=== PATIENT | female | born 1970 | race Caucasian/White ===

== ENCOUNTER 2023-12-10 11:00 | Observation (INO) | payer OTHER, SELFPAY ==
[2023-12-10] VITALS (37 sets, daily range): BP systolic 101–148; BP diastolic 58–73; PULSE 84–98; TEMP 36.7–37.2; O2SAT 95–100; BMI 21.0; BMI 21.9
--- NOTE | 2023-12-10 12:23 | XR_ITS ---
The [address] [address] Patient Name: CARL DAMON MRN: [id number] date: 1970 Sex: F Assigned Patient Location: ER Current Patient Location: ER Accession/Order Number: [id number] Exam Date: 12/10/2023 12:38 Report Date: 12/10/2023 12:53 At the request of: VINCENT JAMIL Procedure: XR chest 1V EXAMINATION: XR chest 1V HISTORY: Chest pain COMPARISON: No relevant comparison available. TECHNIQUE: AP portable FINDINGS: LUNGS: No significant pulmonary parenchymal abnormalities. VASCULATURE: No increased pulmonary vasculature. PLEURA: No pneumothorax, effusion, or pleural thickening. CARDIAC: No cardiomegaly or cardiac silhouette abnormality. MEDIASTINUM: No visible mass or adenopathy. BONES: No fracture or visible bone lesion. OTHER: Negative. XR/XR chest 1V IMPRESSION: No acute cardiopulmonary process Electronically authenticated by: SABRINA JENNINGS Date: 12/10/2023 12:53
--- NOTE | 2023-12-10 12:23 | ECG_ITS ---
The [facility] Test Date: 2023-12-10 Pat Name: CARL DAMON Department: Room: - Gender: Female Actuarial Technician: : 1970 Requested By: [id number] Order Number: [id number] Reading MD: DONTE MORFIN Measurements Intervals [place] Rate: 93 P: -4 WV: 134 QRS: 77 QRSD: 80 T: 37 QT: 382 QTc: 433 Interpretive Statements [address]/T wave changes, can't exclude inferior ischemia 9110 normal ECG No previous ECG available for comparison Electronically Signed On 12-10-2023 22:18:51 EDT by DONTE MORFIN
[2023-12-10 12:40] LABS: Basophils Absolute Auto 0.1 10^3/uL (0.0-0.1); Basophils Percent Auto 0.6 % (0.2-2.0); Eosinophils Absolute Auto 0.1 10^3/uL (0.0-0.7); Eosinophils Percent Auto 0.6 % (0.9-7.0); Immature Granulocytes Abs Auto 0.06 10^3/uL (0.00-0.03); Immature Granulocytes Pct Auto 0.6 % (0.0-0.5); Lymphocytes Percent Auto 19.7 % (20.5-60.0); Mean Corpuscular HGB Conc 30.2 g/dL (29.9-35.2); Mean Corpuscular Hemoglobin 28.2 pg (26.7-34.0); Mean Corpuscular Volume 93.3 fL (81.0-99.0); Mean Platelet Volume 10.7 fL (9.5-13.5); Monocytes Absolute Auto 0.5 10^3/uL (0.3-0.8); Monocytes Percent Auto 5.4 % (1.7-12.0); Neutrophils Absolute Auto 7.3 10^3/uL (1.4-6.5); Neutrophils Percent Auto 73.1 % (43.0-75.0); Platelet Count 249 10^3/uL (150-450); Red Blood Count 2.38 10^6/uL (4.20-5.40); Red Cell Distribution Width 20.6 % (11.0-15.0); White Blood Count 9.9 10^3/uL (4.0-11.0)
[2023-12-10 12:42] LABS: Hematocrit 22.2 % (36.0-48.0); Hemoglobin 6.7 g/dL (12.0-16.0)
[2023-12-10 12:50] LABS: Alanine Aminotransferase 18 U/L (14-59); Albumin Globulin Ratio 0.5; Albumin Level 2.2 g/dL (3.4-5.0); Alkaline Phosphatase 215 U/L (46-116); Anion Gap 13.8; Aspartate Amino Transferase 126 U/L (15-37); BUN Creatinine Ratio 4.1; Bilirubin Total 4.2 mg/dL (0.2-1.0); Calcium 8.4 mg/dL (8.5-10.1); Carbon Dioxide 25.1 mmol/L (21.0-32.0); Chloride 99 mmol/L (98-107); Estimated GFR (African America >60 (>=60); Estimated GFR (Non-African Ame >60 (>=60); Globulin 4.1 g/dL; Glucose 103 mg/dL (74-106); Sodium 135 mmol/L (136-145); Total Protein 6.3 g/dL (6.4-8.2); Troponin I High Sensitivity 9.6 pg/mL (4.0-51.3)
--- NOTE | 2023-12-10 12:57 | ED_ITS ---
HPI HPI - General Adult General Stated complaint: CHEST PAIN/SHORTNESS OF BREATH Time Seen by Provider: 12/10/23 11:05 Source: patient Mode of arrival: walk-in History of Present Illness HPI narrative: Patient presents to ED complaining of shortness of breath. She said about a week ago she started with a cough and what she thought were may be seasonal allergies. She has been coughing up clear phlegm and she has had some chills as well. She scheduled a doctor appointment which is not until next Friday, so 1 week from now. She said she started to get some chest pain with this as well as more shortness of breath so she came in for further evaluation. She has pain with inspiration in the right lung and chest pain as well. No nausea vomiting no syncope. She does report that she has been coughing very hard and has a history of severe hemorrhoids. She has been coughing so hard that her hemorrhoids have been bleeding a lot. No syncope but she does get lightheaded and dizzy Especially upon standing.She is alert and oriented in no acute distress at this time vital signs stable. Related Data Home Medications ?Medication ?Instructions ?Recorded ?Confirmed No Known Home Medications 12/10/23 12/10/23 Allergies Allergy/AdvReac Type Severity Reaction Status Date / Time No Known Drug Allergies Allergy Verified 12/10/23 11:09 Opioid HPI Opioid Management Most Recent Opioid Data: No Data to Display Review of Systems ROS Status of ROS 10 or more systems reviewed and unremark able except as noted in history and below Exam Narrative Exam Narrative: Time Seen: [] Vital Signs: [Per nurse's notes.] General: [Alert]Pale Skin: [Warm, dry, no rash.] Head: [Normocephalic, atraumatic.] Neck: [Supple, trachea midline.] Eye: [Pupils are equal, round and reactive to light, extraocular movements are intact, normal conjunctiva.] Ears, nose, mouth and throat: oral mucosa moist. Cardiovascular: [Regular rate and rhythm, no murmur.] Respiratory: Crackles in the right base, respirations are non-labored, breath sounds are equal.] Chest wall: [No tenderness, no deformity.] Gastrointestinal: [Soft, nontender, non distended, normal bowel sounds.] MSK: 5 out of 5 muscle strength x 4 extremities no calf pain or edema Lymphatics: [No lymphadenopathy.] Psychiatric: [Cooperative, appropriate mood & affect.] Neurological: [Alert and oriented to person, place, time, and situation, no focal neurological deficit observed.] Constitutional Vital Signs, click to edit/add: Last Vital Signs Temp 98.5 F 12/10/23 11:09 Pulse 90 12/10/23 13:50 Resp 23 H 12/10/23 13:50 BP 126/67 12/10/23 13:45 Pulse Ox 100 12/10/23 13:50 O2 Del Method Room Air 12/10/23 11:09 Course Vital Signs Vital signs: Vital Signs Pulse Rate 98 H 12/10/23 11:00 Respiratory Rate 18 12/10/23 11:00 Blood Pressure 148/73 H 12/10/23 11:00 Pulse Oximetry 99 12/10/23 11:00 Oxygen Delivery Method Room Air 12/10/23 11:00 Temperature 98.5 F 12/10/23 11:09 Pulse Rate 90 12/10/23 13:50 Respiratory Rate 23 H 12/10/23 13:50 Blood Pressure 126/67 12/10/23 13:45 Pulse Oximetry 100 12/10/23 13:50 Oxygen Delivery Method Room Air 12/10/23 11:09 Medical Decision Making MDM Narrative Medical decision making narrative: Lab called with a critical hemoglobin of 6.7. Blood transfusion was ordered immediately. Lab called again with a critical potassium of 2.9. Potassium was ordered immediately. I called and spoke to Dr. Martin who will admit the patient for blood transfusion as well as potassium transfusion. Patient does also admit to drinking alcohol daily but has not had a drink in 2 days and is so far not exhibiting any signs or symptoms of acute alcohol withdrawal. Dr. Martin is comfortable with the med/tele admit.Patient is comfortable care plan for admission Differential Diagnosis Differential Diagnosis: Anemia, pneumonia, electrolyte abnormality Medical Records Medical records reviewed: Yes I reviewed the patient's medical records Lab Data Lab results reviewed: Yes I reviewed the patient's lab results Labs: Lab Results 12/10/23 Range/Units 11:20 WBC 9.9 (4.0-11.0) 10^3/uL RBC 2.38 L (4.20-5.40) 10^6/uL Hgb 6.7 L* (12.0-16.0) g/dL Hct 22.2 L* (36.0-48.0) % MCV 93.3 (81.0-99.0) fL MCH 28.2 (26.7-34.0) pg MCHC 30.2 (29.9-35.2) g/dL RDW 20.6 H (11.0-15.0) % Plt Count 249 (150-450) 10^3/uL MPV 10.7 (9.5-13.5) fL Neut % (Auto) 73.1 (43.0-75.0) % Lymph % (Auto) 19.7 L (20.5-60.0) % Charles % (Auto) 5.4 (1.7-12.0) % Eos % (Auto) 0.6 L (0.9-7.0) % Baso % (Auto) 0.6 (0.2-2.0) % Neut # (Auto) 7.3 H (1.4-6.5) 10^3/uL Lymph # (Auto) 2.0 (1.2-3.8) 10^3/uL Charles # (Auto) 0.5 (0.3-0.8) 10^3/uL Eos # (Auto) 0.1 (0.0-0.7) 10^3/uL Baso # (Auto) 0.1 (0.0-0.1) 10^3/uL Abs Immat Gran (auto) 0.06 H (0.00-0.03) 10^3/uL Imm/Tot Granulo (auto) 0.6 H (0.0-0.5) % Sodium 135 L (136-145) mmol/L Potassium 2.9 L* (3.5-5.1) mmol/L Chloride 99 (98-107) mmol/L Carbon Dioxide 25.1 (21.0-32.0) mmol/L Anion Gap 13.8 BUN 3.0 L (7.0-18.0) mg/dL Creatinine 0.74 (0.55-1.02) mg/dL Est GFR ( Amer) >60 (>=60) Est GFR (Non-Af Amer) >60 (>=60) BUN/Creatinine Ratio 4.1 Glucose 103 (74-106) mg/dL Calcium 8.4 L (8.5-10.1) mg/dL Total Bilirubin 4.2 H (0.2-1.0) mg/dL AST 126 H (15-37) U/L ALT 18 (14-59) U/L Alkaline Phosphatase 215 H (46-116) U/L Troponin I High Sens 9.6 (4.0-51.3) pg/mL Total Protein 6.3 L (6.4-8.2) g/dL Albumin 2.2 L (3.4-5.0) g/dL Globulin 4.1 g/dL Albumin/Globulin Ratio 0.5 ECG Data Attestation: I personally reviewed and interpreted this ECG as follows: Interpretation: EKG INTERPRETATION Time: []1110 Rate: []93 Rhythm: _ []Normal sinus rhythm ST segments: _ [] T waves: _ [] Ectopy: _ [] P wave/DE interval: _ [] QRS interval: _ [] QT interval: _ [] Comparison: _ [] Comparison EKG date: [] Performed by: [self]Normal sinus rhythm no acute ST elevation or depression Discharge Plan Discharge Clinical Impression: Anemia, Dyspnea, Hypokalemia Patient Disposition: Admitted As Inpatient Time of Disposition Decision: 14:05 Condition: Fair Prescriptions / Home Meds: No Action No Known Home Medications Print Language: Guatemalan Referrals: [facility] [Primary Care Provider] - 1 week
[2023-12-10 13:00] LABS: Potassium 2.9 mmol/L (3.5-5.1)
--- NOTE | 2023-12-10 13:30 | US_ITS ---
The [place] [id number] Patient Name: CARL DAMON MRN: [id number] date: 1970 Sex: F Assigned Patient Location: Current Patient Location: Accession/Order Number: [id number] Exam Date: 12/10/2023 07:00 Report Date: 12/11/2023 07:46 At the request of: ANDREEA REDDING Procedure: US right upper quadrant EXAM: US right upper quadrant HISTORY: Elevated liver function, CP/epigastric pain COMPARISON: None. TECHNIQUE: Grayscale, color and Doppler FINDINGS: The liver measures 19.3 cm in length. Mildly nodular contour. Diffuse increase in hepatic echotexture with no focal mass. Hepatopedal flow in the main portal vein with velocity of 36 cm/s. The gallbladder is normal in size. The gallbladder wall is thickened measuring up to 5.8 mm with some fluid. Layering material within the gallbladder likely cholelithiasis/sludge. The common bile duct measures 1.6 mm, normal. The visualized pancreas is normal. The right kidney is normal measuring 10.3 x 5.2 x 4.1 cm. Small amount of ascites with a perihepatic distribution Call results initiated through operations US/US right upper quadrant IMPRESSION: Mildly nodular echogenic liver, consider cirrhosis Thickened gallbladder wall suggesting cholecystitis Electronically authenticated by: SABRINA JENNINGS Date: 12/11/2023 07:46
[2023-12-10] MEDS: POTASSIUM CHLORIDE 10 MEQ ER TABLET 40 MEQ PO (13:31)
[2023-12-10] MEDS: POTASSIUM CHLORIDE 40 MEQ in 0.9 % SODIUM CHLORIDE 250 ML 67.5 MEQ IV (13:31)
[2023-12-10] MEDS: 0.9 % SODIUM CHLORIDE 250 ML 10 ML IV (13:32)
--- NOTE | 2023-12-10 15:20 | SWNOTE1 ---
SW went to speak with pt in regards to alcohol intake, but nursing was in room completing admission assessment.
[2023-12-10 15:51] LABS: INR 1.33; Partial Thromboplastin Time 37.1 sec (22.3-36.2); Prothrombin Time 13.7 sec (9.0-11.6)
--- NOTE | 2023-12-10 16:08 | P.HP_ITS ---
HPI H&P: HPI History of Present Illness Chief complaint: HYPOKALEMIA/ANEMIA/RECTAL BLEEDING/SOB Narrative: 12/10/23 1520 This is a 53-year-old female patient with a past medical history as outlined below significant for chronic rectal bleeding from hemorrhoids and EtOH abuse, who presented to the ED today complaining of lightheadedness, weakness, confusion, nausea, and cough. The patient reports a long-term rectal bleeding issue from hemorrhoids that she uses Proctofoam for on a regular basis. She noted increased bleeding in the last 2 months with minimal stool output and occasional large-volume rectal bleeding. She denies any abdominal or rectal pain associated with this bleeding. She has not been following with any doctor for more than 4 years after she started drinking again after a 6 mo stint of sobriety. She currently drinks 3-4 large Naughty Doggy cocktails (8% EtOH) plus multiple Fireball shots daily. She has no known history of liver disease but has not had any lab work done for at least 4 years. She also admits to 1PPD tobacco use for many years. Workup in the ED revealed profound anemia (6.7), profound hypokalemia (2.9), transaminitis (bili 4.2, AST 126, alk phos 215). A CXR was unremarkable. The patient is being admitted as an inpatient to the hospitalist service for GI bleeding, acute on chronic blood loss anemia, hypokalemia, and hyperbilirubinemia. At the time of my exam the patient is resting in bed talking with her daughter. She freely admits to her heavy alcohol use and verbalizes openness to pursuing alcohol cessation. We have ordered right upper quadrant ultrasound to further assess her liver, and this will be done in the morning after she is n.p.o. for 8 hours. We have also added on coagulation studies, folic acid, B12, magnesium, and phosphorus labs to the ED sample. Will treat as needed pending these results. We will consult social work professor for assistance with alcohol cessation programs. Opioid HPI Opioid Management Most Recent Opioid Data: Last Pain Assessment 12/11/23 06:00 Last ORT Total Score 6 12/10/23 14:51 Last ORT Risk Category Moderate Risk 12/10/23 14:51 Review of Systems ROS Status of ROS 10 or more systems reviewed and unremark able except as noted in history and below PFSH PFS Medical History (Updated 12/11/23 @ 07:04 by Darcy Dwyer NP) Tobacco dependence ?F17.200 - Nicotine dependence, unspecified, uncomplicated (ICD-10) Alcoholism ?F10.20 - Alcohol dependence, uncomplicated (ICD-10) Stress headaches ?F45.41 - Pain disorder exclusively related to psychological factors (ICD-10) Hemorrhoid ?K64.9 - Unspecified hemorrhoids (ICD-10) Surgical History (Updated 12/10/23 @ 15:17 by Zina Tay) H/O tubal ligation ?Z98.51 - Tubal ligation status (ICD-10) Family History (Updated 12/10/23 @ 15:18 by Zina Tay) Grandfather Family history of myocardial infarction Father Family history of hypertension Family history of cancer Grandmother Family history of cancer Mother Family history of COPD (chronic obstructive pulmonary disease) Social History (Updated 12/10/23 @ 15:21 by Zina Tay) Within the past year, how often did you have a drink containing alcohol: 4 or more times a week Within the past year, how many standard drinks containing alcohol did you have on a typical day: 3 or 4 Within the past year, how often did you have six or more drinks on one occasion: monthly Total score: 4 Score interpretation: A score of 3 or more indicates drinking is likely to affect patient's safety. Smoking status: Heavy tobacco smoker Non-prescribed substance use: denies use Previous occupational history: [employer] Highest level of school completed/degree received: high school graduate Are you now , , , , never or living with a partner: Little interest or pleasure in doing things: several days Feeling down, depressed, or hopeless: several days Feel stressed/tense/nervous/anxious/difficulty sleeping: rather much Life stressors: unknown source of stress Meds Home Medications and Allergies Home Medications ?Medication ?Instructions ?Recorded ?Confirmed ?Type No Known Home Medications 12/10/23 12/10/23 History Allergies Allergy/AdvReac Type Severity Reaction Status Date / Time No Known Drug Allergies Allergy Verified 12/10/23 11:09 Exam Constitutional Vital Signs, click to edit/add: Last Vital Signs Temp 98.5 F 12/10/23 14:51 Pulse 92 H 12/10/23 14:51 Resp 20 05/22/24 14:51 BP 123/64 12/10/23 14:51 Pulse Ox 96 12/10/23 14:51 O2 Del Method Room Air 12/10/23 14:51 Common normals: no apparent distress, oriented x3, alert and well nourished General appearance: cooperative Orientation/consciousness: Yes awake Other: Jaundiced HENMT Common normals: normocephalic, head/scalp atraumatic, hearing grossly normal bilaterally, external nose normal and moist oral mucous membranes Eye Common normals: PERRL, EOMs intact bilaterally and conjunctivae normal Alignment: alignment normal Eyelid: eyelids normal Sclera: sclera abnormal Laterality of scleral abnormality: bilateral (icteric) Neck & C-Spine Common normals: full ROM, supple and no JVD Chest Common normals: inspection of chest normal Chest: symmetrical chest wall rise Respiratory Common normals: normal respiratory effort, no retractions, no use of accessory muscles and clear to auscultation bilaterally Effort & inspection: able to speak in complete sentences Cardio Common normals: no JVD, regular rate, regular rhythm, S1 normal heart sound, S2 normal heart sound, no gallops, no clicks, no rub and peripheral pulses 2+ throughout Heart sounds: murmur (HSM 2/6) GI Common normals: Normal to inspection, nondistended, normoactive bowel sounds present, soft to palpation, non-tender, no hepatosplenomegaly, no masses and no bruits Bladder/kidney exam: bladder normal to palpation Back & Pelvis Common normals: thoracic and lumbar spine normal to inspection Extremity Common normals: normal capillary refill and no pedal edema General: normal exam except as noted; no clubbing and no cyanosis Neuro Alanna Coma Scale: GCS not evaluated Common normals: CN's II-XII intact bilaterally, moves all extremities, no focal motor deficits and no sensory deficits noted Speech: speech normal Motor exam: strength 5/5 throughout Psych Common normals: mental status grossly normal, thought process normal, affect normal and activity/motor behavior normal Results Labs Labs: Short CBC 12/10/23 Range/Units 11:20 WBC 9.9 (4.0-11.0) 10^3/uL Hgb 6.7 L* (12.0-16.0) g/dL Hct 22.2 L* (36.0-48.0) % Plt Count 249 (150-450) 10^3/uL BMP 12/10/23 11:20 Sodium 135 L Potassium 2.9 L* Chloride 99 Carbon Dioxide 25.1 BUN 3.0 L Creatinine 0.74 Glucose 103 Calcium 8.4 L Liver Function 12/10/23 Range/Units 11:20 Total Bilirubin 4.2 H (0.2-1.0) mg/dL AST 126 H (15-37) U/L ALT 18 (14-59) U/L Alkaline Phosphatase 215 H (46-116) U/L Albumin 2.2 L (3.4-5.0) g/dL Pulse Oximetry Attestation: I have reviewed the pertinent pulse oximetry results. Imaging Chest x-ray: Attestation: I have reviewed the pertinent imaging results. Radiologist's impression: IMPRESSION: No acute cardiopulmonary process Assessment and Plan Assessment and Plan (1) GIB (gastrointestinal bleeding): Assessment and Plan: Acute on Chronic * Adm inpatient * We plan at least a 2 midnight stay for medically necessary hospital care including frequent lab monitoring, PRBC transfusions, Electrolyte IV replacement, and cardiac monitoring * Acute worsening of chronic BRBPR - suspect d/t known hemorrhoids, but fissures/neoplastic lesions/impaired coagulation are all possible contributors * Add coagulation studies on to ED lab sample in setting of liver dysfunction * See ABLA below * Consider Surgical consult for possible colonoscopy pending clinical course vs outpatient follow up after discharge * CBC, CMP daily (2) ABLA (acute blood loss anemia): Assessment and Plan: Acute on Chronic * Hgb 6.7 in the ED * 2 un PRBC transfusion ordered - pending transfusion * HH q6h - transfuse further units for hgb < 7 or significantly symptomatic * Strict I&O * CBC daily (3) Hypokalemia: Assessment and Plan: Acute * Suspect 2/2 heavy alcohol abuse * KCL 40 meq IVPB PLUS 40 meq PO given in the ED * Repeat BMP at 1800 * Give additional KCL 40 meq IVPB for K+ less than 3.1 * Add mag and phos onto ED labs and replete as needed * Tele monitoring * CMP daily (4) Hyperbilirubinemia: Assessment and Plan: Acute vs Chronic * Bili 4.2, AST 126, Alk Phos 215, ALT WNL * Jaundice noted on exam * No known hx of liver disease but pt admits to significant EtOH consumption daily * Suspect underlying cirrhosis * US RUQ to assess the liver in AM * Check ammonia level * Plan outpatient follow up with GI pending results (5) At risk for alcohol withdrawal: Assessment and Plan: Acute * EtOH w/drawal protocol initiated * Seizure precautions * PRN ativan and Librium * student services coordinator consult for rehab placement assistance * Check folate and B12 levels, start PO replacement daily (6) Tobacco dependence: Assessment and Plan: Chronic * Nicoderm 21 mg patch daily
--- NOTE | 2023-12-10 16:12 | SWNOTE1 ---
SW did speak to nurse practitioner and there will be a consult for perinatal social worker due to alcohol intake. SW went to stop back in, family was in room and nursing. SW to attempt to see pt tomorrow.
[2023-12-10] MEDS: NICOTINE 21 MG PATCH.TD24 TD (16:44)
[2023-12-10] MEDS: SENNOSIDES/DOCUSATE SODIUM 1 TAB TABLET PO (16:44)
[2023-12-10 16:58] LABS: Ammonia 23 umol/L (11-32)
[2023-12-10] MEDS: FOLIC ACID 1 MG TABLET PO (20:10)
[2023-12-10] MEDS: ONDANSETRON PF 4 MG/2 ML VIAL IV (20:10)
[2023-12-10] MEDS: PANTOPRAZOLE SODIUM 40 MG VIAL IV (20:10)
[2023-12-11] VITALS (9 sets, daily range): BP systolic 109–118; BP diastolic 70–72; PULSE 83–88; TEMP 36.7; O2SAT 92–116
[2023-12-11 02:06] LABS: Hemoglobin 8.9 g/dL (12.0-16.0)
[2023-12-11 02:15] LABS: Anion Gap 2.7; BUN Creatinine Ratio 5.6; Calcium 8.1 mg/dL (8.5-10.1); Carbon Dioxide 26.4 mmol/L (21.0-32.0); Chloride 95 mmol/L (98-107); Estimated GFR (African America >60 (>=60); Estimated GFR (Non-African Ame >60 (>=60); Glucose 94 mg/dL (74-106); Potassium 4.1 mmol/L (3.5-5.1)
[2023-12-11 02:22] LABS: Sodium 120 mmol/L (136-145)
[2023-12-11 03:13] LABS: Occult Blood Positive
[2023-12-11 03:14] LABS: Internal Control Within Normal Limits
[2023-12-11] MEDS: 0.9 % SODIUM CHLORIDE 1,000 ML 125 ML IV (03:27)
[2023-12-11] MEDS: ONDANSETRON PF 4 MG/2 ML VIAL IV (06:18)
[2023-12-11] MEDS: LORAZEPAM 2 MG/ML VIAL 0.5 MG IV (06:56)
[2023-12-11 08:07] LABS: Basophils Absolute Auto 0.1 10^3/uL (0.0-0.1); Basophils Percent Auto 0.5 % (0.2-2.0); Eosinophils Absolute Auto 0.1 10^3/uL (0.0-0.7); Eosinophils Percent Auto 0.7 % (0.9-7.0); Hematocrit 28.8 % (36.0-48.0); Hemoglobin 9.1 g/dL (12.0-16.0); Immature Granulocytes Pct Auto 0.9 % (0.0-0.5); Lymphocytes Absolute Auto 1.8 10^3/uL (1.2-3.8); Lymphocytes Percent Auto 15.5 % (20.5-60.0); Mean Corpuscular HGB Conc 31.6 g/dL (29.9-35.2); Mean Corpuscular Hemoglobin 28.5 pg (26.7-34.0); Mean Corpuscular Volume 90.3 fL (81.0-99.0); Mean Platelet Volume 10.4 fL (9.5-13.5); Monocytes Absolute Auto 0.6 10^3/uL (0.3-0.8); Monocytes Percent Auto 5.3 % (1.7-12.0); Neutrophils Absolute Auto 8.7 10^3/uL (1.4-6.5); Neutrophils Percent Auto 77.1 % (43.0-75.0); Platelet Count 238 10^3/uL (150-450); Red Blood Count 3.19 10^6/uL (4.20-5.40); Red Cell Distribution Width 19.6 % (11.0-15.0); White Blood Count 11.3 10^3/uL (4.0-11.0)
--- NOTE | 2023-12-11 09:41 | SWNOTE1 ---
VIGNESH met with pt to discuss her alcohol intake and possibility of inpt/outpt rehab. Pt voiced she has been drinking for a very long time. She voiced she has stopped a few times and then got bored and started drinking again. Pt wakes up at 5am and has a few beers or shots, then drives to work at [employer]. Once she is home she goes to her room and smokes and has a few more beers/shots and repeats the same thing the next day. VIGNESH asked if she has ever had DUI? Pt stated she has not. SW advised against drinking and driving as it is a danger to herself and other drivers on road. SW asked if her employer has ever said anything, she voiced no. Pt has 4 children, she stated once they grew up and moved out she was bored and drank. Her friends mother lives with her and she was caring for her. While she was caring for her she stopped drinking, but now her friends mother is better and she is back to drinking again. VIGNESH did ask pt if she is going to continue once home. She stated she is done. She stated this is the first time she had an actual health scare and she is worried now. Pt did voice she has a good support system between family and friends and they will encourage her not to drink. VIGNESH reviewed the resources that VIGNESH provided. Pt has only been to the [facility] and stated it was a bad experience. VIGNESH went over the information from [facility] in [place]. VIGNESH encouraged pt to give this facility a try and let her know it is outpt. VIGNESH reviewed the phone number and location. VIGNESH offered to call and get an apt set up, but pt would like to do it on her own as she has appointments and work to work around. VIGNESH also reviewed the AA meetings and other outpt/inpt resources with pt. VIGNESH provided a card with SW extension at hospital to call if pt needs any assistance. VIGNESH did ask about her follow up apt and who it was with. Pt voiced it is with Dr. Thompson. VIGNESH and bilingual secretary looked up number. The floor bilingual secretary called and confirmed pt does have a new pt apt with Dr. Luz Townsend on FridayDecember 16. VIGNESH notified pt that it is Friday and encouraged her to follow up. No further needs at this time. SW to follow as needed.
[2023-12-11 09:46] LABS: Alanine Aminotransferase 15 U/L (14-59); Albumin Globulin Ratio 0.6; Albumin Level 2.2 g/dL (3.4-5.0); Alkaline Phosphatase 192 U/L (46-116); Aspartate Amino Transferase 123 U/L (15-37); Bilirubin Total 10.1 mg/dL (0.2-1.0); Calcium 8.1 mg/dL (8.5-10.1); Carbon Dioxide 25.2 mmol/L (21.0-32.0); Chloride 101 mmol/L (98-107); Estimated GFR (African America >60 (>=60); Estimated GFR (Non-African Ame >60 (>=60); Globulin 3.9 g/dL; Glucose 90 mg/dL (74-106); Magnesium 1.9 mg/dL (1.8-2.4); Phosphorus 1.7 mg/dL (2.6-4.7); Potassium 4.2 mmol/L (3.5-5.1); Sodium 134 mmol/L (136-145); Total Protein 6.1 g/dL (6.4-8.2)
--- NOTE | 2023-12-11 09:46 | CM.NOTE ---
Rounds made with Dr. Martin, discussed in-depth need to stop drinking alcohol. Discussed also with pt need for EGD and Colonoscopy as outpatient testing. Pt will need to f/u with PCP ([place] secretary of state to schedule.) SW updated on pt history and will meet with pt regarding alcohol treatment plan.
[2023-12-11] MEDS: FOLIC ACID 1 MG TABLET PO (10:06)
[2023-12-11] MEDS: PANTOPRAZOLE SODIUM 40 MG VIAL IV (10:06)
[2023-12-11] MEDS: ACETAMINOPHEN 325 MG TABLET 650 MG PO (10:06)
[2023-12-11] MEDS: SENNOSIDES/DOCUSATE SODIUM 1 TAB TABLET PO (10:06)
[2023-12-11 11:25] LABS: Bilirubin Direct 4.3 mg/dL (0.0-0.2)
--- NOTE | 2023-12-11 11:33 | P.DS_ITS ---
<Statement entered by Davey Martin MD - 12/11/23 20:51> This documentation has been reviewed and approved. Pt seen and examined at bedside, agree with input and finding from Nurse practitioner. DS: Providers Provider Date of admission: 12/10/23 14:31 Primary care physician: [facility] Consults: 12/10/23 16:35 Consult to Elevator Mechanic Apprentice Routine Reason for consult:: Drug Abuse Other reason:: EtOH rehab Discharging clinician: Darcy Dwyer DS: Diagnosis Discharge Diagnosis (1) GIB (gastrointestinal bleeding): (2) ABLA (acute blood loss anemia): (3) Hypokalemia: (4) Hyperbilirubinemia: (5) Liver cirrhosis, alcoholic: (6) At risk for alcohol withdrawal: (7) Tobacco dependence: DS: Summary Hospital Course Hospital Course: The patient was admitted with with acute on chronic blood loss anemia from acute on chronic painless GI bleeding, hypokalemia, and hyperbilirubinemia suspected due to EtOH abuse. She was transfused with 2 units PRBCs and her hemoglobin was monitored closely for 24 hours. Her anemia resolved and her hemoglobin remained above 9 at the time of discharge. We suspect hemorrhoidal bleeding but source could also include neoplasm/diverticulitis/anal fissure versus other etiologies. The patient has been referred after discharge for an outpatient colonoscopy. In addition we obtained a ultrasound of her right upper quadrant to further assess her liver. This revealed likely cirrhosis and also gallbladder wall thickening but no evidence of biliary obstruction. Due to the patient's impaired liver function we checked an INR which was slightly elevated at 1.33 which is likely contributing to her frequent bleeding. As the patient's hemoglobin is stabilized and her symptoms from anemia had resolved, she was discharged home in stable condition. She should be referred to general surgery or GI as soon as possible for a colonoscopy to further assess for sources of bleeding. She was prescribed Proctofoam for her known hemorrhoids at discharge. In addition, the patient was strongly advised to pursue complete alcohol cessation which she verbalized her intention to do so. She was seen by social worker delinquency prevention for assistance with alcohol cessation programs. She was prescribed a short Librium taper at discharge to prevent alcohol withdrawal symptoms after discharge. She was informed to not take this medication with alcohol and to avoid all alcohol completely. She should follow-up with her PCP within 1 week and we strongly advise close monitoring of her CBC until she is able to have a colonoscopy. We recommend GI follow-up for her cirrhosis as well. Time Spent with Patient Time attestation: Total time spent providing and/or coordinating discharge services: Time spent: greater than 30 minutes Specific discharge activities: Physical exam, discussion of discharge plan, questions answered. Exam Constitutional Vital Signs, click to edit/add: Last Vital Signs Temp 98.0 F 12/11/23 08:00 Pulse 87 12/11/23 08:00 Resp 18 12/11/23 08:00 BP 109/70 12/11/23 08:00 Pulse Ox 92 L 12/11/23 08:00 O2 Del Method Room Air 12/11/23 08:00 Common normals: no apparent distress, oriented x3 and alert General appearance: cooperative Orientation/consciousness: Yes awake HENMT Common normals: normocephalic and head/scalp atraumatic Eye Common normals: PERRL, EOMs intact bilaterally and conjunctivae normal Neck & C-Spine Common normals: no JVD Respiratory Common normals: normal respiratory effort and no use of accessory muscles Effort & inspection: able to speak in complete sentences and symmetric chest movement Auscultation: rales (Fine, BLL) Cardio Common normals: no JVD, regular rate, regular rhythm, S1 normal heart sound, S2 normal heart sound, no murmurs and peripheral pulses 2+ throughout GI Common normals: Normal to inspection, nondistended, normoactive bowel sounds present, soft to palpation and non-tender Bladder/kidney exam: bladder normal to palpation Extremity Common normals: normal to inspection, full ROM, normal capillary refill and no pedal edema General: no clubbing and no cyanosis Neuro Common normals: moves all extremities, no focal motor deficits and no sensory deficits noted Speech: speech normal Psych Common normals: mental status grossly normal and activity/motor behavior normal DS: Data Data Completed and Pending Labs on day of discharge: Labs from last 24 hours 12/11/23 12/11/23 12/11/23 08:01 03:03 01:59 WBC 11.3 H RBC 3.19 L Hgb 9.1 L 8.9 L Hct 28.8 L 28.0 L MCV 90.3 MCH 28.5 MCHC 31.6 RDW 19.6 H Plt Count 238 MPV 10.4 Neut % (Auto) 77.1 H Lymph % (Auto) 15.5 L Cotton % (Auto) 5.3 Eos % (Auto) 0.7 L Baso % (Auto) 0.5 Neut # (Auto) 8.7 H Lymph # (Auto) 1.8 Cotton # (Auto) 0.6 Eos # (Auto) 0.1 Baso # (Auto) 0.1 Abs Immat Gran (auto) 0.10 H Imm/Tot Granulo (auto) 0.9 H PT INR APTT Sodium 134 L 120 L* Potassium 4.2 4.1 Chloride 101 95 L Carbon Dioxide 25.2 26.4 Anion Gap 12.0 2.7 BUN 3.0 L 4.0 L Creatinine 0.60 0.71 Est GFR ( Amer) >60 >60 Est GFR (Non-Af Amer) >60 >60 BUN/Creatinine Ratio 5.0 5.6 Glucose 90 94 Calcium 8.1 L 8.1 L Phosphorus 1.7 L Magnesium 1.9 Total Bilirubin 10.1 H Direct Bilirubin 4.3 H* AST 123 H ALT 15 Alkaline Phosphatase 192 H Ammonia Troponin I High Sens Total Protein 6.1 L Albumin 2.2 L Globulin 3.9 Albumin/Globulin Ratio 0.6 Vitamin B12 Folate Stool Occult Blood Positive A Blood Type Antibody Screen Crossmatch 12/10/23 12/10/23 12/10/23 16:41 12:58 11:20 WBC 9.9 RBC 2.38 L Hgb 6.7 L* Hct 22.2 L* MCV 93.3 MCH 28.2 MCHC 30.2 RDW 20.6 H Plt Count 249 MPV 10.7 Neut % (Auto) 73.1 Lymph % (Auto) 19.7 L Cotton % (Auto) 5.4 Eos % (Auto) 0.6 L Baso % (Auto) 0.6 Neut # (Auto) 7.3 H Lymph # (Auto) 2.0 Cotton # (Auto) 0.5 Eos # (Auto) 0.1 Baso # (Auto) 0.1 Abs Immat Gran (auto) 0.06 H Imm/Tot Granulo (auto) 0.6 H PT 13.7 H INR 1.33 APTT 37.1 H Sodium 135 L Potassium 2.9 L* Chloride 99 Carbon Dioxide 25.1 Anion Gap 13.8 BUN 3.0 L Creatinine 0.74 Est GFR ( Amer) >60 Est GFR (Non-Af Amer) >60 BUN/Creatinine Ratio 4.1 Glucose 103 Calcium 8.4 L Phosphorus 2.0 L Magnesium 2.0 Total Bilirubin 4.2 H Direct Bilirubin AST 126 H ALT 18 Alkaline Phosphatase 215 H Ammonia 23 Troponin I High Sens 9.6 Total Protein 6.3 L Albumin 2.2 L Globulin 4.1 Albumin/Globulin Ratio 0.5 Vitamin B12 539.0 Folate 3.80 L Stool Occult Blood Blood Type O Positive Antibody Screen Negative Crossmatch See Detail Imaging Chest x-ray: Radiologist's impression: IMPRESSION: No acute cardiopulmonary process US - abdomen: Radiologist's impression: IMPRESSION: Mildly nodular echogenic liver, consider cirrhosis Thickened gallbladder wall suggesting cholecystitis Discharge Plan Discharge Disposition: Home, Self-Care Condition: Fair Discharge Medications: New chlordiazepoxide HCl 25 mg capsule See Rx Instructions .ROUTE .COMPLEX Qty: 13 0RF Rx Instructions: Day #1-2 tabs every 8 hrs Day #2-2 tabs every 12 hrs Day #3-2 tabs at bedtime Day #4-1 tab at bedtime Do not take with alcohol Proctofoam HC 1-1 % foam 1 applic IL TID-QID PRN (Reason: hemorrhoids) Qty: 10 0RF Activity: increase activity as tolerated Diet: other Diet Detail: Soft, Low residue, low fiber Print Language: Omani Patient Instructions: Gastrointestinal Bleeding (DC) Activity Restrictions/Additional Instructions: - Recommend referral to GI [facility] for colonoscopy/GI bleeding and new cirrhosis diagnosis - Recommend close monitoring of Hgb (weekly) until pt has a colonoscopy. Outpatient PRBC transfusions may be indicated. - Return to the ED if you experience recurrent shortness of breath, lightheadedness, or confusion - Complete alcohol cessation is advised - Do not drink alcohol while taking Librium (chlordiazepoxide) Forms: Portal Instructions Follow Up Appointments: December 16 @ 9am with Luz Townsend NP [phone] *need to discuss with physician scheduling an outpatient EGD/Colonoscopy Discharge Date/Time: 12/11/23 13:59
--- OUTSIDE RECORDS SUMMARY | 2023-12-12 13:59 | XMS_ITS | CCD ---
Author Organization [facility] Care Team Providers Care Mortgage Loan Closer Name Role Phone PAY, DR BAEZA Attending Unavailable PAY, DR BAEZA Admitting Unavailable [facility] Primary Care Unavailable RADHA CERVANTES Consulting Unavailable Melvina Duron Medications Current Medications Medication Drug Class(es) Dates Sig (Normalized) Sig (Original) clindamycin 300 mg oral capsule (1 source) Lincosamide Antibacterial Start: 03-04-2023 take 2 capsules by mouth every eight hours Clindamycin HCl 300 MG 2 capsules Orally every 8 hrs for 7 day(s) Feb, Active ibuprofen 800 mg oral tablet (1 source) Nonsteroidal Anti-inflammatory Drug Start: 03-04-2023 take 1 tablet by mouth three times daily at mealtime as needed Ibuprofen 800 MG 1 tablet with food or milk as needed Orally Three times a day for 7 days Feb, Active Problems Problem Classification Problem Date Documented Da te Episodic/Chronic Disorders of teeth and jaw (1 source) Periapical abscess without sinus Episodic Hemorrhoids (4 sources) Perianal venous thrombosis; Translations: [PERIANAL VENOUS THROMBOSIS] Onset: 05-28-2022 Episodic Substance-related disorders (1 source) Nicotine dependence, cigarettes, uncomplicated; Translations: [NICOTINE DEPEND CIGARETTES UNCOMP] Onset: 05-30-2022 Chronic Vital Signs Date Time Vital Sign Value Performing Clinician Facility 03-04-2023 15:40-0400 Body height 167.64 cm Melvina Duron Other [facility] Other 03-04-2023 15:40-0400 Body mass index (BMI) [Ratio] 22.59 kg/m2 Melvina Duron Other [facility] Other 03-04-2023 15:40-0400 Body temperature 98.2 [degF] Melvina Duron Other [facility] Other 03-04-2023 15:40-0400 Body weight 63.5 kg Melvina Duron Other [facility] Other 03-04-2023 15:40-0400 Diastolic blood pressure 79 mm[Hg] Melvina Duron Other [facility] Other 03-04-2023 15:40-0400 Respiratory rate 18 /min Melvina Duron Other [facility] Other 03-04-2023 15:40-0400 SaO2% (BldA) [Mass fraction] 99 % Melvina Duron Other [facility] Other 03-04-2023 15:40-0400 Systolic blood pressure 124 mm[Hg] Melvina Duron Other [facility] Other Encounters Encounter Date Encounter Type Care Provider Facility Start: 03-04-2023 End: 03-04-2023 ambulatory Melvina Duron Other [facility] Other Start: 03-04-2023 Office outpatient vi sit 15 minutes Melvina Duron [facility] Start: 05-28-2022 End: 05-28-[address] BAEZA PAY Facility:[facility] Payers Date Payer Category Payer Unknown [id number] 1958 Unknown [id number] Social History Date Type Detail Facility Unknown if ever smoked [facility] Other Sex Assigned At Sex Assigned At Bir th [facility] Other Evaluation note 03-04-2023 Note Date & Type Note Facility 03-04-2023 Evaluation note Encounter Date Diagnosis Assessment Notes Feb, Abscessed tooth (ICD-10 - K04.7) Discussed diagnosis with patient and instructed to start ATB immediately. Warm salt water gargles. Ice to swelling and/or warm compresses prn for pain, ice for 10-20 minutes at a time, ensure thin cloth barrier between skin. Advised to call dentist today and to let dentist know she has an abscessed tooth. Stressed to patient that she needs to follow up with dentist [facility] due to risk of infection spreading into bone. Discussed S/S of worsening infection and instructed she should seek immediate evaluation in the ER if she develops any. Seek re-evaluation if no improvement after 48 hours on ATB. Patient verbalized understanding and agrees with treatment plan [facility] Other History general Narrative - Reported Note Date & Type Note Facility History general Narrative - Reported Type Surgical History hysterectomy Hospitalization History see above [facility] Other Summary Purpose Family History No Family History Records Found Advance Directives No Advanced Directives Records Found Additional Source Comments INFORMATION SOURCE (unrecogn ized section and content) DATE CREATED AUTHOR 05/30/2022 [facility] REASON FOR VISIT (unrecogniz ed section and content) SWOLLEN RIGHT JAW, TEETH. PA IN IN RIGHT EAR FOR RECORDS PERTAINING TO PATIENTS WHO ARE OR HAVE BEEN ENROLLED IN A CHEMICAL DEPENDENCY/SUBSTANCEABUSE PROGRAM, SOME INFORMATION MAY BE OMITTED. This clinical summary was aggregated from multiple sources. Caution should be exercised in using it in the provision of clinical care. This summary normalizes information from multiple sources, and as a consequence, information in this document may materially change the coding, format and clinical context of patient data. In addition, data may be omitted in some cases. CLINICAL DECISIONS SHOULD BE BASED ON THE PRIMARY CLINICAL RECORDS. [employer] [facility]. provides no warranty or guarantee of the accuracy or completeness of information in this document.
--- NOTE | 2023-12-16 15:55 | CM.DCFOLLOWU ---
Person spoke with: patient How are you feeling? well How is your pain? no pain Did you understand your discharge instructions? yes Do you have any questions about your discharge instructions? no Were you given any prescriptions at discharge? yes Were you able to get your prescriptions filled? 1 was filled the other needed a pre-auth, she will inform her PCP tomorrow Do you understand how to take your medications as ordered? yes Do you have any questions about your follow up appointment and do you plan to keep your follow up appointment? no questions, follow up tomorrow Is there anything else that you would like to discuss? no Questions/Comments/Concerns/Other: N/A
== END 2023-12-11 13:59 | disposition home or self-care (01) ==
LOC: ER 14:05 → MS 20:30
PROVIDERS: Admitting Provider Family Medicine; Emergency Provider Emergency Medicine; Visit Provider Nurse Practitioner
DX: D62 Acute posthemorrhagic anemia (principal); K92.2 Gastrointestinal hemorrhage, unspecified; E87.6 Hypokalemia; E80.6 Other disorders of bilirubin metabolism; K70.30 Alcoholic cirrhosis of liver without ascites; F10.10 Alcohol abuse, uncomplicated; F17.210 Nicotine dependence, cigarettes, uncomplicated
CPT/HCPCS: 36415; 36430; 71045; 76705; 80048; 80053; 82140; 82248; 82570; 82607; 82746; 83735; 83935; 84100; 84300; 84484; 85014; 85018; 85025; 85610; 85730; 86850; 86900; 86901; 93005; 96365; 96366; 96375; 96376; 99285; G0328; G0378; J3480; P9016